=== PATIENT | female | born 1970 | race Caucasian/White ===

== ENCOUNTER → 2019-02-25 08:55 | Day surgery (SDC) | payer MEDICARE, MEDICAID ==
[~2019-02-25 08:55] MED LIST: Acetaminophen TAB* 325 MG ONE; Acetaminophen TAB* 325 MG PO PRN; Buffered Lidocaine 1% SYRIN* 1 ML/SYRINGE INTRADERM ONE; Bupivacaine 0.25% SDV PF* 10 ML VIAL INJ ONE; Bupivacaine 0.5%* 50 ML VIAL ONE; HYDROmorphone INJ1* 1 MG/ML SYRINGE IV PRN; Ketorolac INJ* 30 MG/ML 1 ML VIAL ONE; Lactated Ringers 1000 ML Bag* 1,000 ML IV SCH; Midazolam* 1 MG/ML 5 ML VIAL (5 MG) ONE; Naloxone* 0.4 MG/ML 1 ML VIAL IV PRN; Ondansetron INJ* 2 MG/ML VIAL ONE; Propofol* 10 MG/ML 20 ML BTL ONE; Scopolamine 1.5 mg* PATCH ONE; ceFAZolin 2 GM in NS PREMIX(*) 2 GM/100 ML BAG IVPB ONE; fentaNYL* 50 MCG/ML 2 ML VIAL (100 MCG VIAL) IV PRN; fentaNYL* 50 MCG/ML 2 ML VIAL (100 MCG VIAL) ONE
--- NOTE | 2019-02-25 14:25 | OP ---
Operative Report - Blank - Operative Report Date of Operation: 02/25/19 Note: PATIENT: Rosamaria Recinos DATE OF : 1970 DATE OF SURGERY: 02/25/2019 SURGEON: Sihvam Gonzalez MD ONLINE ACTIVIST: LUKE Sahu, whos assistance was necessary for positioning, retraction, help with instrumentation, and closure. ANESTHESIOLOGIST: Dr. Hopper PREOPERATIVE DIAGNOSIS: Right foot hallux valgus deformity, 2nd metatarsal synovitis and instability, and 2nd hammertoe POSTOPERATIVE DIAGNOSIS: Right foot hallux valgus deformity, 2nd metatarsal synovitis and instability, and 2nd hammertoe OPERATION: 1. Right foot hallux valgus correction with distal soft tissue procedure, medial eminence resection, and proximal suture button fixation. 2. Right 2nd metatarsal shortening maceira/gabby osteotomy. 3. Right 2nd EDL tendon lengthening 4. Right 2nd hammertoe correction with PIP resection arthroplasty ANESTHESIA: MAC IMPLANTS: Arthrex mini tightrope, quick-fix screw. TOURNIQUET TIME: Less than 2 hours with a well-padded thigh tourniquet at 250mmHg SPECIMENS: None ESTIMATED BLOOD LOSS: Minimal COMPLICATIONS: none STATUS: Stable from the operating room to the recovery room and then home. INDICATIONS FOR PROCEDURE: Rosamaria has had persistent forefoot pain. Both operative and non-operative treatment alternatives were reviewed. Further, the nature and risks of surgery were reviewed in careful detail, in the office as well as the pre-operative holding area. Our discussions regarding the risks of surgery included, but were not limited to, infection, wound problems, nerve injury, neuroma, RSD, persistent symptoms, blood clot, recurrence of the hallux valgus deformity, hallux varus deformity, imperfect reduction, metatarsal fracture, nonunion, AVN , malunion, recurrent hammertoe, floating toe, need for further surgery, failure of the surgery, and even the remote chance of catastrophic complication. DESCRIPTION OF PROCEDURE: The patient was seen in the preoperative holding unit and informed written consent was obtained. The appropriate extremity was marked. The patient was then brought to the operating room and carefully positioned on the operating room table. Anesthesia was induced. All bony prominences were padded with great care. A chlorhexidine based pre-scrub was performed followed by a chloraprep prep and drape in standard sterile fashion. A surgical safety pause was then conducted in which we confirmed the appropriate patient, extremity, planned procedure, availability of equipment, indication and administration of prophylactic antibiotics, and DVT prophylaxis in the form of a compression boot on the non-surgical extremity. I began with Esmarch exsanguination of the limb and inflation of the tourniquet. An approximately 3cm longitudinal dorsal incision was made in the first webspace. Blunt dissection was utilized to expose the structures of the lateral first MTP joint. With a scalpel I then sharply released the adductor tendon, intermetatarsal ligament, metatarsal-sesamoid ligament, and lateral joint capsule. After this, the hallux came readily over into varus with minimal pressure. I then made an approximately 3cm longitudinal incision over the medial aspect of the first MTP joint, centered at the first MTP joint. Dissection was carried down to the capsular layer. The dorsomedial cutaneous nerve was protected throughout. The capsule was opened in line with the skin incision. I then used an oscillating saw to perform an exostectomy of the medial eminence of the first MTP head flush with the metaphyseal flare proximally. I started the osteotomy 1mm medial to the sagittal sulcus. The dorsomedial prominence was then contoured with a rongeur. I then simulated an imbrication of the capsule, which provided excellent visual correction of the hallux valgus deformity and intermetatarsal angle. I used fluoroscopy to confirm this and that the sesamoids were appropriately positioned under the first metatarsal head. As such, I then formally imbricated and repaired the medial first MTP joint capsule utilizing several advancing horizontal mattress sutures with 0 Vicryl. I then made an approximately 1 cm incision at the lateral border of the second metatarsal. The lateral cortex of the second metatarsal was exposed. The 1.1mm guidewire from the Arthrex mini tightrope set was passed from the lateral second metatarsal, through the second metatarsal, and through the first metatarsal to exit medially. I felt four cortices while advancing the guidewire. Then, by pulling the guidewire out medially, I shuttled a passing suture through the second and first metatarsals. I then looped the suture of the Arthrex mini tightrope through the passing suture and pulled this out laterally through the second metatarsal. This acted to shuttle the mini tightrope through the first and second metatarsals. The buttons were placed flush on the medial aspect of the first metatarsal and lateral aspect of the second metatarsal, and the suture was tied over the button laterally at the second metatarsal. Fluoroscopy was used to confirm that this maintained my intermetatarsal correction. I then turned my attention to the second metatarsal and utilized. A longitudinal webspace incision. I dissected down to the layer of the joint capsule and periosteum. This was incised longitudinally and the second metatarsal head was exposed. A straight small oscillating saw to perform a Maceira/Gabby type distal second metatarsal shortening osteotomy. This was fixated with a quickfix twist-off screw. There is still some tension on the EDL tendon to the second toe, so I performed a Z-lengthening of the EDL tendon. I tenotomized the EDB tendon. The toe was still hammered even after shortening the second metatarsal, so I decided to perform a hammertoe correction. An incision was made over the left 2nd toe PIP joint and taken down to the level of bone and joint. The collateral ligaments were released on both sides. I then used a small oscillating saw to osteotomize the distal aspect of the proximal phalanx. This was then excised. I then placed a 0.045 K wire through the toe in an antegrade/ retrograde fashion. The resection and pin placement was then confirmed with fluoroscopy. The toe sat nice and straight clinically. Final fluoroscopic images were then obtained. The wounds were copiously irrigated and meticulously closed in layers utilizing 3-0 Monocryl and 3-0 nylon. A sterile dressing was then applied, along with a bunion bolster. The patient was then awakened from anesthesia and transferred to the recovery room in stable condition. There were no complications. All needle and sponge counts were correct at the end of the case. ATTESTATION: I attest I was present and scrubbed and performed the critical portions of the procedure myself. POSTOPERATIVE PLAN: The patient will remain heel weightbearing in a postop shoe for anticipated duration of 6 weeks. Followup will be in 2 weeks for likely suture removal, Steri-Strip application, and reapplication of the bunion bolster.
[2019-02-25 14:38] VITALS: BP 155/98
== END | disposition home or self-care (01) ==
LOC: OR 08:55
PROVIDERS: ATTEND Orthopaedic Surgery
DX: M21.611 Bunion of right foot (principal); M20.41 Other hammer toe(s) (acquired), right foot; M65.871 Other synovitis and tenosynovitis, right ankle and foot; M20.11 Hallux valgus (acquired), right foot; I10 Essential (primary) hypertension; M19.90 Unspecified osteoarthritis, unspecified site; R60.9 Edema, unspecified
CPT/HCPCS: 76000; 81025; A9270-GY; C1713; J0690; J1885; J2250; J2405; J2704; J3010; J3490

== ENCOUNTER 2019-08-17 07:04 | Day surgery (SDC) | payer MEDICARE, MEDICAID ==
[~2019-08-17 07:04] MED LIST changes: -Acetaminophen TAB* 325 MG ONE; -Acetaminophen TAB* 325 MG PO PRN; -Bupivacaine 0.25% SDV PF* 10 ML VIAL INJ ONE; -Bupivacaine 0.5%* 50 ML VIAL ONE; +Dexamethasone TAB* 4 MG PO ONE; +DiMENhydriNATE IV* 50 MG/ML VIAL IV PUSH PRN; +Famotidine IV* 10 MG/ML 2 ML (20 mg) IV ONE; -Ketorolac INJ* 30 MG/ML 1 ML VIAL ONE; -Midazolam* 1 MG/ML 5 ML VIAL (5 MG) ONE; -Ondansetron INJ* 2 MG/ML VIAL ONE; +Ondansetron ODT TAB* 4 MG PO ONE; +PROCHLORPERAZINE INJ 5 MG/ML 2 ML VIAL IV PRN; -Propofol* 10 MG/ML 20 ML BTL ONE; -Scopolamine 1.5 mg* PATCH ONE; -ceFAZolin 2 GM in NS PREMIX(*) 2 GM/100 ML BAG IVPB ONE; -fentaNYL* 50 MCG/ML 2 ML VIAL (100 MCG VIAL) IV PRN; -fentaNYL* 50 MCG/ML 2 ML VIAL (100 MCG VIAL) ONE; +oxyCODONE TAB* 5 MG TAB PO PRN
[2019-08-17] MEDS ORDERED: Dexamethasone TAB* 4 MG ONE (07:22)
[2019-08-17] MEDS ORDERED: ceFAZolin 2 GM in NS PREMIX(*) 2 GM/100 ML BAG IVPB ONE (07:22)
[2019-08-17] MEDS ORDERED: Famotidine IV* 10 MG/ML 2 ML (20 mg) ONE (07:22)
[2019-08-17] MEDS ORDERED: Ondansetron ODT TAB* 4 MG ONE (07:22)
[2019-08-17] MEDS ORDERED: Propofol* 500 MG/50 ML BTL ONE (08:02)
[2019-08-17] MEDS ORDERED: Lidocaine 2% PF * 5 ML VIAL ONE (08:02)
[2019-08-17] MEDS ORDERED: fentaNYL* 50 MCG/ML 2 ML VIAL (100 MCG VIAL) ONE (08:03)
[2019-08-17] MEDS ORDERED: KETAMINE HCL* 50 MG/ML 10 ML VIAL ONE (08:04)
[2019-08-17] MEDS ORDERED: Midazolam* 1 MG/ML 5 ML VIAL (5 MG) ONE (08:04)
[2019-08-17] MEDS ORDERED: Scopolamine 1.5 mg* PATCH ONE (08:27)
[2019-08-17] MEDS ORDERED: Bupivacaine 0.5%* 50 ML MDV VIAL ONE (08:36)
--- NOTE | 2019-08-17 09:59 | OP ---
Operative Report - Blank - Operative Report Date of Operation: 08/17/19 Note: PATIENT: Rosamaria Recinos DATE OF : 1970 DATE OF SURGERY: 08/17/2019 SURGEON: Shivam Gonzalez MD TRACK CAR OPERATOR: LUKE Sahu, whos assistance was necessary for positioning, retraction, help with instrumentation, and closure. ANESTHESIOLOGIST: Dr. Matos PREOPERATIVE DIAGNOSIS: Left foot hallux valgus deformity and 2nd MTP synovitis POSTOPERATIVE DIAGNOSIS: Left foot hallux valgus deformity and 2nd MTP synovitis OPERATION: 1. Left foot hallux valgus correction with distal soft tissue procedure, medial eminence resection, and proximal suture button fixation. 2. Left 2nd metatarsal shortening osteotomy ANESTHESIA: MAC IMPLANTS: Arthrex mini tightrope. Quick-fix screw 14mm length TOURNIQUET TIME: Less than one hour with a well-padded thigh tourniquet at 250mmHg SPECIMENS: None ESTIMATED BLOOD LOSS: Minimal COMPLICATIONS: none STATUS: Stable from the operating room to the recovery room and then home. INDICATIONS FOR PROCEDURE: Rosamaria has pain from a bunion and 2nd MTP synovitis. 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 I previously did surgery on her right foot and she has done excellent with that. Both operative and non-operative treatment alternatives were reviewed. Further, the nature and risks of surgery were reviewed in careful detail, in the office as well as the pre-operative holding area. Our discussions regarding the risks of surgery included, but were not limited to, infection, wound problems, nerve injury, neuroma, RSD, persistent symptoms, blood clot, recurrence of the hallux valgus deformity, hallux varus deformity, imperfect reduction, metatarsal fracture, nonunion, malunion, AVN, need for further surgery, failure of the surgery, and even the remote chance of catastrophic complication. DESCRIPTION OF PROCEDURE: The patient was seen in the preoperative holding unit and informed written consent was obtained. The appropriate extremity was marked. The patient was then brought to the operating room and carefully positioned on the operating room table. Anesthesia was induced. All bony prominences were padded with great care. A chlorhexidine based pre-scrub was performed followed by a chloraprep prep and drape in standard sterile fashion. A surgical safety pause was then conducted in which we confirmed the appropriate patient, extremity, planned procedure, availability of equipment, indication and administration of prophylactic antibiotics, and DVT prophylaxis in the form of a compression boot on the non-surgical extremity. I began with Esmarch exsanguination of the limb and inflation of the tourniquet. I utilized her prior incision overlying the second metatarsal. I Thick flaps were dissected with medial to the lateral aspect of the first metatarsal. With a scalpel I then sharply released the adductor tendon, intermetatarsal ligament, metatarsal-sesamoid ligament, and lateral joint capsule. After this, the hallux came readily over into varus with minimal pressure. I then made an approximately 3cm longitudinal incision over the medial aspect of the first MTP joint, centered at the first MTP joint. Dissection was carried down to the capsular layer. The dorsomedial cutaneous nerve was protected throughout. The capsule was opened in line with the skin incision. I then used an oscillating saw to perform an exostectomy of the medial eminence of the first MTP head flush with the metaphyseal flare proximally. I started the osteotomy 1mm medial to the sagittal sulcus. The dorsomedial prominence was then contoured with a rongeur. I then simulated an imbrication of the capsule, which provided excellent visual correction of the hallux valgus deformity and intermetatarsal angle. I used fluoroscopy to confirm this and that the sesamoids were appropriately positioned under the first metatarsal head. As such, I then formally imbricated and repaired the medial first MTP joint capsule utilizing several advancing horizontal mattress sutures with #1 Vicryl. I then dissected out a small area of the second metatarsal shaft from the lateral incision. The lateral cortex of the second metatarsal was exposed. The 1.1mm guidewire from the Arthrex mini tightrope set was passed from the lateral second metatarsal, through the second metatarsal, and through the first metatarsal to exit medially. I felt four cortices while advancing the guidewire. Then, by pulling the guidewire out medially, I shuttled a passing suture through the second and first metatarsals. I then looped the suture of the Arthrex mini tightrope through the passing suture and pulled this out laterally through the second metatarsal. This acted to shuttle the mini tightrope through the first and second metatarsals. The buttons were placed flush on the medial aspect of the first metatarsal and lateral aspect of the second metatarsal, and the suture was tied over the button laterally at the second metatarsal. Fluoroscopy was used to confirm that this maintained my intermetatarsal correction. I then turned my attention to the second metatarsal. Dissection was taken down to the dorsal aspect of the second MTP joint. The capsule was incised longitudinally to expose the second metatarsal head. I then used a small oscillating saw blade to perform a Lisette osteotomy of the distal second metatarsal. The second metatarsal head was then slid proximal a few millimeters. This was then stabilized with a twist off Arthrex quickfix screw. This provided good compression and held the osteotomy well stabilized. Final fluoroscopic images were then obtained. The wounds were copiously irrigated and meticulously closed in layers utilizing 3-0 Monocryl and 3-0 nylon. A sterile dressing was then applied, along with a bunion bolster. The patient was then awakened from anesthesia and transferred to the recovery room in stable condition. There were no complications. All needle and sponge counts were correct at the end of the case. ATTESTATION: I attest I was present and scrubbed and performed the critical portions of the procedure myself. POSTOPERATIVE PLAN: The patient will remain heel weightbearing in a postop shoe for anticipated duration of 6 weeks. Followup will be in 2 weeks for likely suture removal, Steri-Strip application, and reapplication of the bunion bolster.
[2019-08-17 11:00] VITALS: BP 140/84
== END 2019-08-17 11:04 | disposition home or self-care (01) ==
LOC: OR 07:04
PROVIDERS: ATTEND Orthopaedic Surgery
DX: M20.12 Hallux valgus (acquired), left foot (principal); M65.872 Other synovitis and tenosynovitis, left ankle and foot; M19.90 Unspecified osteoarthritis, unspecified site; M54.17 Radiculopathy, lumbosacral region
CPT/HCPCS: 81025; A9270-GY; C1713; J0690; J2250; J2704; J3010; J3490; J8540

== ENCOUNTER 2020-06-27 08:16 | Inpatient (IN) ==
[~2020-06-27 08:16] MED LIST changes: +Acetaminophen IV 1 GM/100ML 1,000 MG/100 ML VIAL IVPB ONE; +Buffered Lidocaine 1% SYRIN 1 ml INTRADERM ONE; -Buffered Lidocaine 1% SYRIN* 1 ML/SYRINGE INTRADERM ONE; -Dexamethasone TAB* 4 MG PO ONE; -DiMENhydriNATE IV* 50 MG/ML VIAL IV PUSH PRN; +Famotidine IV 10 MG/ML 2 ml VIAL (20 mg) IV ONE; -Famotidine IV* 10 MG/ML 2 ML (20 mg) IV ONE; -HYDROmorphone INJ1* 1 MG/ML SYRINGE IV PRN; -Lactated Ringers 1000 ML Bag* 1,000 ML IV SCH; +Lactated Ringers 1000 ml BAG 1,000 ML IV SCH; -Naloxone* 0.4 MG/ML 1 ML VIAL IV PRN; -Ondansetron ODT TAB* 4 MG PO ONE; -PROCHLORPERAZINE INJ 5 MG/ML 2 ML VIAL IV PRN; -oxyCODONE TAB* 5 MG TAB PO PRN
[2020-06-27] MEDS ORDERED: Phenylephrine IV 10 MG/ML 1 ml VIAL ONE (08:39)
[2020-06-27] MEDS ORDERED: Lidocaine 2% PF 5 ML VIAL ONE (08:39)
[2020-06-27] MEDS ORDERED: Propofol 10 MG/ML 20 ML BTL ONE ×2 (08:40→11:59)
[2020-06-27] MEDS ORDERED: Succinylcholine 200 mg VIAL 20 mg/ml 10 ml VIAL (200 mg) ONE (08:40)
[2020-06-27] MEDS ORDERED: Remifentanil 2 MG VIAL ONE (08:40)
[2020-06-27] MEDS ORDERED: Ondansetron 4 mg VIAL 2 MG/ML 2 ml VIAL ONE (08:40)
[2020-06-27] MEDS ORDERED: Dexamethasone IV 4 MG/ML VIAL 1 ml VIAL ONE (08:40)
[2020-06-27] MEDS ORDERED: Midazolam 2 mg/2 ml VIAL 1 mg/ml 2 ml VIAL (2 mg) ONE (08:41)
[2020-06-27] MEDS ORDERED: fentaNYL 100 mcg/2 ml 50 MCG/ML VIAL ONE (08:41)
[2020-06-27] MEDS ORDERED: Famotidine IV 10 MG/ML 2 ml VIAL (20 mg) ONE ×2 (08:44→09:21)
[2020-06-27] MEDS ORDERED: ceFAZolin 2 GM PREMIX 2 GM/50 ML BAG ONE (08:44)
[2020-06-27] MEDS ORDERED: Acetaminophen IV 1 GM/100ML 100 ML ONE (08:44)
[2020-06-27] MEDS ORDERED: Buffered Lidocaine 1% SYRIN 1 ml INTRADERM ONE (08:44)
[2020-06-27] MEDS ORDERED: Bacitracin INJECTION 50,000 UNITS ONE (10:18)
[2020-06-27] MEDS ORDERED: Naloxone 0.4 mg VIAL 0.4 mg/ml 1 ml VIAL IV PRN ×2 (10:24→13:42)
[2020-06-27] MEDS ORDERED: HYDROmorphone 1 MG/1 ML SYRINGE IV PRN ×2 (10:24→13:42)
[2020-06-27] MEDS ORDERED: Rocuronium 50 mg VIAL 10 mg/ml 5 ml VIAL (50 mg) ONE (10:34)
[2020-06-27] MEDS ORDERED: fentaNYL 250 mcg/5 ml 50 MCG/ML 5 ml VIAL (250 MCG) ONE (10:35)
[2020-06-27] MEDS ORDERED: fentaNYL 100 mcg/2 ml 50 MCG/ML VIAL IV PRN (13:42)
[2020-06-27] MEDS ORDERED: HYDROmorphone 1 MG/1 ML SYRINGE ONE (14:15)
[2020-06-27] MEDS ORDERED: Ondansetron 4 mg VIAL 2 MG/ML 2 ml VIAL IV PRN (15:36)
[2020-06-27] MEDS ORDERED: Magnesium Hydroxide LIQ 30 ML UDC PO PRN (15:36)
[2020-06-27] MEDS ORDERED: Senna TAB 8.6 mg TAB PO SCH (21:00)
[2020-06-28 11:37] VITALS: BP 122/61
[2020-06-30] MEDS ORDERED: Scopolamine PATCH Remove NOTE PATCH OFF ONE (06:58)
== END 2020-06-28 16:15 | disposition home or self-care (01) | DRG 460 ==
LOC: AA 08:16 → SSU 15:36
PROVIDERS: ADMIT Neurological Surgery; ATTEND Neurological Surgery